=== PATIENT | male | born 1980 | race Hispanic/Latino ===

== ENCOUNTER 2024-09-26 17:14 | Emergency (ER) | payer SELFPAY ==
[2024-09-26 18:29] LABS: #Basophils 0.09 10x3/uL (0.0-0.2); %Basophils 1.2 % (0.0-1.0); %Eosinophils 2.4 % (0.0-10.0); %Lymphocytes 17.7 % (21.0-51.0); %Monocytes 8.9 % (0.0-10.0); %Neutrophils 69.5 % (42.0-75.0); Hematocrit 49.2 % (42.0-52.0); Hemoglobin 17.1 g/dL (14.0-18.0); Mean Corpuscular HGB CONC 34.8 g/dL (32.0-36.0); Mean Corpuscular Hemoglobin 30.6 pg (27.0-31.0); Mean Platelet Volume 9.7 fL (7.4-10.4); Platelet Count 142 10x3/uL (130-400); RBC Distribution Width 11.6 % (11.5-14.5); Red Blood Cell (RBC) Count 5.59 mill/uL (4.70-6.10)
[2024-09-26 18:41] LABS: ALT (SGPT) 79 U/L (Less than 45); AST (SGOT) 104 U/L (11-34); Albumin 4.2 g/dL (3.1-4.5); Alkaline Phosphatase 195 U/L (40-110); Anion Gap 17 mmol/L (10-20); BUN (Urea Nitrogen) 6 mg/dL (8.9-20.6); Bilirubin, Total 1.8 mg/dL (0.3-1.2); Calc. Creatinine Clearance 0 mL/min (70-130); Calcium 9.4 mg/dL (7.8-10.44); Carbon Dioxide 20 mmol/L (22-29); Chloride 96 mmol/L (98-107); Estimated GFR 110; Globulin 5.3 g/dL (2.4-3.5); Glucose 272 mg/dL (70-105); Potassium 3.9 mmol/L (3.5-5.1); Protein, Total 9.5 g/dL (6.0-8.3); Sodium 129 mmol/L (136-145)
[2024-09-26 18:43] LABS: Troponin I Less than 0.010 ng/mL (< 0.028)
[2024-09-26] MEDS ORDERED: hydrALAZINE 20 MG/ML VIAL ONE (19:42)
[2024-09-26] MEDS ORDERED: Thiamine 100 MG TAB ONE (19:44)
[2024-09-26] MEDS ORDERED: Folic Acid 1 MG TAB ONE ×2 (19:51→19:53)
[2024-09-26 20:00] LABS: Bacteria/HPF None Seen HPF (None Seen); Bilirubin Negative (Negative); Blood, Urine Negative (Negative); CAUTI Indications for Culture Pelvic or flank pain; Clarity Clear (Clear); Glucose, Urine (Dipstick) Greater than 1000 mg/dL (Negative); Ketone, Urine Negative (Negative); Leukocyte 75 Leu/uL (Negative); Nitrite Negative (Negative); Protein, Urine (Dipstick) Negative (Neg-Trace); RBC/HPF None Seen HPF (0-3); Specific Gravity, Urine 1.015 (1.002-1.036); Squamous Epithelial 0-3 HPF (0-3); Urobilinogen Normal mg/dL (Less than 2)
[2024-09-26 20:04] LABS: Urine Culture Reflex No No
== END 2024-09-26 23:20 | disposition home or self-care (01) ==
LOC: ERS 17:14
DX: I10 Essential (primary) hypertension (principal); F10.10 Alcohol abuse, uncomplicated; E78.5 Hyperlipidemia, unspecified; E11.9 Type 2 diabetes mellitus without complications
CPT/HCPCS: 36415; 70450; 71045; 76705; 80053; 80307; 81001; 84484; 85025; 93005; 96374; J0360